=== PATIENT | female | born 2005 | race Caucasian/White ===

== ENCOUNTER 2024-12-31 12:37 | Emergency (ER) | payer OTHER ==
[~2024-12-31] VITALS: Ht 157.5 cm; Wt 54.4 kg
== END 2024-12-31 15:40 | disposition home or self-care (01) ==
LOC: ER 12:37
DX: O20.0 Threatened abortion (principal)
CPT/HCPCS: 76801; 76817; 84702; 86900; 86901; 99284-25

== ENCOUNTER → 2025-01-04 | Outpatient (CLI) | payer OTHER | LOC: LAB 17:30 → LAB SHORT 17:30 | DX: O20.0 Threatened abortion (principal) | CPT/HCPCS: 84702 ==

== ENCOUNTER → 2025-01-06 | Outpatient (CLI) | payer OTHER | END | disposition home or self-care (01) | LOC: LAB 16:43 → LAB SHORT 16:43 | DX: O20.0 Threatened abortion (principal) | CPT/HCPCS: 84702 ==